=== PATIENT | female | born 1985 | race Caucasian/White ===

== ENCOUNTER 2025-03-13 20:41 | Emergency (ER) | payer MEDICAID ==
[~2025-03-13] VITALS: Ht 172.7 cm; Wt 78.2 kg
[2025-03-13] MEDS ORDERED: IBUP-1492 PO (23:41)
[2025-03-13 23:50] VITALS: BP 141/75; PULSE 78; RESP 18; TEMP 97.7; O2SAT 97
[2025-03-14] MEDS: KETOROLAC TROMETHAMINE 60 MG/2 ML VIAL IM ONE (00:04)
== END 2025-03-14 03:23 | disposition home or self-care (01) ==
LOC: EMS 20:41
DX: S63.501A Unspecified sprain of right wrist, initial encounter (principal); M77.9 Enthesopathy, unspecified; E03.9 Hypothyroidism, unspecified; Z88.0 Allergy status to penicillin; Z79.899 Other long term (current) drug therapy; W19.XXXA Unspecified fall, initial encounter; Y93.89 Activity, other specified; Y92.89 Other specified places as the place of occurrence of the external cause; Y99.8 Other external cause status
CPT/HCPCS: 99284; 73090-TC; 73110-TC; Z7502